=== PATIENT | male | born 1985 | race Caucasian/White ===

== ENCOUNTER 2016-09-12 16:44 | Inpatient (IN) | payer OTHER ==
[~2016-09-12] VITALS: Ht 177.8 cm; Wt 63.5 kg
[2016-09-12] MEDS ORDERED: ONDANSETRON 4 MG/2 ML VIAL IM PRN (18:00)
[2016-09-12] MEDS ORDERED: LORAZEPAM 1 MG TABLET PO PRN ×2 (18:00)
[2016-09-12] MEDS ORDERED: diphenhydrAMINE 50 MG CAPSULE PO PRN (18:00)
[2016-09-12] MEDS ORDERED: ACETAMINOPHEN 325 MG TABLET PO PRN (18:00)
[2016-09-12] MEDS ORDERED: MAG HYDROX/AL HYDROX/SIMETH 30 ML LIQUID UDC PO PRN (18:00)
[2016-09-12] MEDS ORDERED: LOPERAMIDE HCL 2 MG CAPSULE PO PRN ×2 (18:00)
[2016-09-12] MEDS ORDERED: MAGNESIUM HYDROXIDE 30 ML LIQUID UDC PO PRN (18:00)
[2016-09-12] MEDS ORDERED: CLONIDINE HCL 0.1 MG TABLET PO PRN (18:00)
[2016-09-12] MEDS ORDERED: MIRALAX 17 GM POWD.PACK PO PRN (18:00)
[2016-09-12] MEDS ORDERED: THIAMINE HCL 200 MG/2 ML VIAL IM ONE (18:00)
[2016-09-12] MEDS ORDERED: LORAZEPAM 2 MG/1 ML VIAL IM PRN (18:00)
[2016-09-12] MEDS ORDERED: DICYCLOMINE HCL 20 MG TABLET PO PRN (18:00)
[2016-09-12] MEDS ORDERED: IBUPROFEN 400 MG TABLET PO PRN (18:00)
[2016-09-12] MEDS ORDERED: ONDANSETRON ODT 4 MG TAB.RAPDIS SL PRN (18:00)
--- NOTE | 2016-09-12 18:00 | NUR ---
PRE-ASSESSMENT: Pre-Assessment done at intake office, client is A/O x4, he presents with flat affect, anxious mood. Dilated pupils noted. T 97, RR 20, BP 131/88, HR 143, spO2 @ 97% on RA, Pain 0/10. He is fully ambulatory. He denies any allergies; he denies any withdrawal-induced seizure. Medications taken at home Trazodone 150mg HS PO Wellbutrin 150mg daily PO Clonidine 0.1mg BID PO Substance history alcohol 10-11 club drinks or 375mL hard liquor for a month. Last drink @ 1530 He had a couple double shots, a screw sprinkling truck driver, and a malt liquor 16oz. Methamphetamine $40.00 a day PO, last used an unknown amount today at 1530. Marijuana smoked a bowl daily. Client notified of vital signs every 4 hrs, urine drug screen, home medication policy and blood lab work, he verbalized understanding. Vitals T 97, P 143, RR 20, BP 131/88, spO2 @ 97% on RA, pain 0/10 LBM 09/12/16 Client denies having a PCP.
--- NOTE | 2016-09-12 18:25 | NUR ---
Client is in the unit, he has not been able to provide urine for drug screen. Client is fully ambulatory. Client is oriented to unit, educated about protocols and how to work TV and call light in his room. Seizure precautions. Weight: 140 pounds. Height: 5'10" Reassess pulse is 127 Will endorse to incoming nurse
[2016-09-12] MEDS ORDERED: TRAZ-147 PO (18:38)
[2016-09-12] MEDS ORDERED: BUPR150T10 PO (18:38)
[2016-09-12] MEDS ORDERED: METH500T PO (18:39)
[2016-09-12] MEDS ORDERED: CLON0.1T PO (18:40)
[2016-09-12] MEDS ORDERED: NICO2GUM9 BC (19:30)
--- NOTE | 2016-09-12 19:30 | NUR ---
ADMISSION Patient is a 31-year old, male, admitted and escorted by [facility] at 1830 to unit. Patient verbalized that he is homeless for over a month. Skin check done, no open skin noted. Patient denies Suicidal Ideation nor Homicidal Ideation. No edema noted. Pt is ambulatory with steady gait. Pt stands 5'10" and weighs 140 pounds per standing scale. Vital signs are as follows: BP-124/81, T-98.2, P-118, RR-18 and SPO2 on RA=99%. Patient is AAOx4 and with no anxiety noted at this time. Lung sounds clear bilaterally upon auscultation. No cough noted and bowel sounds are present on all quadrants. PERRLA and pupils are 4 mm upon visual check. Pt reports No Known Allergies, on Regular Diet and is Full Code. Pt denies any history of seizures. Per pt, withdrawal symptoms are anxiety and mental cravings. Patient denies any other withdrawal symptoms. Pt reports using the following substances: 1) Alcohol-Hard Liquor-started at age 13 and became a daily drinker by age 15. Since then, patient reports consuming at least 10 mixed drinks daily. Last consumption was on day of admission, 09/12/2016 1700, and took 3 shots of Giovanny Griffin. 2) Methamphetamine-started at age 23, per pt, he uses 1-2x each month on average, and "about $40 each time". Pt verbalized that he eats the substance because "it is more effective for me if I eat it rather than shoot or smoke it." Last use was on 09/12/2016 1700, "$10 worth" used. 3) Cannabis-started at age 12, and uses 1/2 of a joint daily and has been at this rate for 10 years. Last use was on 09/12/2016 1700, 1/2 joint. Patient verbalized the he does not take other substances besides the one mentioned above. Patient informed PMHx of Anxiety, Depression, Hyperthyroidism, Right Humerus and Pelvic Fractures from accidents several years ago and sweet bites (22 years old). Home meds are reconciled. No PCP nor Psych MD as per patient. Patient reports smoking cigarettes, about 1 pack of Snyder reds, daily. Oriented patient to room and instructed with the use of the call light, placed within reach. Fall, universal, seizure and safety precautions implemented. No c/o significant pain at this time. All needs met. Information relayed to Dr. Machado. Patient refused PNA vaccine and Flu vaccine is out of season. CIWA=6. Will continue to monitor.
[2016-09-12 20:00] VITALS: BP 120/83
[2016-09-12] MEDS ORDERED: LORAZEPAM 1 MG TABLET PO ONE (22:00)
[2016-09-12 22:15] LABS: *AMPHETAMINE, URINE POSITIVE (NEGATIVE); *BARBITURATE, URINE NEGATIVE (NEGATIVE); *CANNABINOID, URINE POSITIVE (NEGATIVE); *COCCAINE, URINE NEGATIVE (NEGATIVE); *OPIATE, URINE NEGATIVE (NEGATIVE); *PHENCYCLIDINE SCREEN,URINE NEGATIVE (NEGATIVE)
[2016-09-12] MEDS ORDERED: THIAMINE HCL 200 MG/2 ML VIAL ONE (22:23)
[2016-09-12 23:10] LABS: BASOPHILS % (AUTO) 0.3 % (0.0-2.0); EOSINOPHILS # (AUTO) 0.1 K/uL (0.0-0.7); MONOCYTES # (AUTO) 1.1 K/UL (0.1-1.30); WHITE BLOOD COUNT (AUTO) 10.9 K/UL (4.0-11.2)
[2016-09-12 23:16] LABS: EOSINOPHILS % (AUTO) 0.7 % (0.0-7.0); HEMOGLOBIN 16.6 G/DL (14.0-18.0); LYMPHOCYTES % (AUTO) 28.1 % (20.5-51.5); MEAN CORPUSCULAR HEMOGLOBIN 30.8 UUG (27.0-31.0); MEAN CORPUSCULAR HGB CONC 34 g/dL (32.0-37.0); MEAN CORPUSCULAR VOLUME 90.9 FL (82.0-92.0); MONOCYTES % (AUTO) 9.9 % (0.0-11.0); NEUTROPHILS # (AUTO) 6.7 K/UL (1.8-8.9); PLATELET COUNT (AUTO) 185 K/UL (150-450); RED BLOOD CELL COUNT(AUTO) 5.39 MIL/UL (4.7-6.1)
[2016-09-12 23:21] LABS: ALANINE AMINOTRANSFERASE 21 U/L (16-63); ALKALINE PHOSPHATASE 73 U/L (50-136); AMYLASE 34 U/L (25-115); ASPARTATE AMINOTRANSFERASE 17 U/L (15-37); BILIRUBIN,TOTAL 1.4 mg/dL (0.2-1.0); CARBON DIOXIDE 28 mmol/L (21-32); CHLORIDE 100 mmol/L (98-107); CREATININE 1.1 mg/dL (0.6-1.3); GLUCOSE 120 mg/dL (74-106); MAGNESIUM 2.2 mg/dL (1.8-2.4); POTASSIUM 3.2 mmol/L (3.5-5.1); TOTAL PROTEIN, SERUM 8.5 g/dL (6.4-8.2); UREA NITROGEN, BLOOD 11 mg/dL (7-18)
[2016-09-12 23:30] LABS: THYROID STIMULATING HORMONE 4.359 mIU/mL (0.358-3.740)
[2016-09-13] VITALS: BP 138/87
[2016-09-13 00:16] LABS: ETHANOL < 3 MG/DL (0-0)
[2016-09-13] MEDS ORDERED: POTASSIUM CHLORIDE 20 MEQ TAB.PRT.SR PO ONE (00:45)
[2016-09-13 04:00] VITALS: BP 130/79
--- NOTE | 2016-09-13 07:07 | NUR ---
End of Shift Patient is a 31-year old, male, admitted for ETOH Dependence. Pt reports No Known Allergies, on Regular Diet and is Full Code. Pt denies any history of seizures. With reported history of Anxiety, Depression, Hyperthyroidism, Right Humerus and Pelvic Fractures from accidents several years ago and sweet bites (22 years old). Pt is AAOx4, no SOB noted and is ambulatory with steady gait. No skin issues. No anxiety noted. . Fall, universal, seizure and safety prec in place. Call light withiin reach. Latest CIWA=4 , slept for 4 hours . Endorsed to AM shift nurse for continuity of care.
--- NOTE | 2016-09-13 07:33 | NUR ---
START OF SHIFT Rcvd endorsement from ongoing nurse, client is a 31 y/o admitted for alcohol withdrawal.Client Client received a one time dose Ativan 2mg @ 2200, last CIWA 4 @ 0400. Client slept 4 hrs. Client is in bed, a/o x4. he presents with anxious mood, flat affect, he stated "I had a hard time sleeping last night, I was sweating, could not stop moving my feet." Enlarged pupil and fine tremors noted. Skin warm/moist to touch, abdomen soft, nontender, quadrant x 4 active. Encourage client to increase fluid intake to facilitate detox. Encourage client to attend group therapy for skills to maintain sobriety. Client denies any hx of withdrawal induced seizures. Client is on seizure precautions. NKA, full code, regular diet. Call light within reach. Side rails x 2 up/padded. Will continue to monitor.
[2016-09-13 08:10] VITALS: BP 126/88
[2016-09-13] MEDS: THIAMINE HCL 100 MG TABLET PO SCH (08:18)
[2016-09-13] MEDS: FOLIC ACID 1 MG TABLET PO SCH (08:18)
[2016-09-13] MEDS: MULTIVITAMINS,THERAPEUTIC TABLET PO SCH (08:18)
--- NOTE | 2016-09-13 08:18 | NUR ---
PRN Ativan 1mg Client with anxiety mb increase P 1047, sweat on face and arms, abdominal cramps, restless legs, CIWA 11. Call light within reach. Will continue to monitor. Addendum: 09/13/16 at 0933 by JAYSHREE DAO RN PRN Clonidine 0.1mg for cold, chills, anxiety. PRN Bentyl 20mg for abdominal spasms. Client's P 107
--- NOTE | 2016-09-13 08:19 | NUR ---
TB test administered to L F/A, client tolerated well.
[2016-09-13] MEDS ORDERED: TUBERCULIN,PURIF.PROT.DERIV. 5 TU/0.1 ML TEST ID ONE (09:00)
--- NOTE | 2016-09-13 09:18 | NUR ---
Reassessment PRN Ativan 1mg, Clonidine 0.1mg, Bentyl 20mg Client appears less anxious, skin moist, P 90, client reports some relief from abdominal spasms, CIWA 6 Call light within reach. Will continue to monitor.
[2016-09-13] MEDS ORDERED: NICOTINE POLACRILEX 4 MG GUM-PK OF TEN BC PRN (09:30)
--- NOTE | 2016-09-13 10:00 | NUR ---
MD Notification Dr. Machado made aware of client being tachycardic, client is asymptomatic.
--- NOTE | 2016-09-13 10:26 | NUR ---
Therapist prompted client about group times. Client reported he would attend all groups today.
[2016-09-13 12:00] VITALS: BP 129/90
[2016-09-13] MEDS: LORAZEPAM 1 MG TABLET PO SCH ×2 (15:06→20:51)
[2016-09-13] MEDS ORDERED: TRAZODONE 100 MG TABLET PO PRN (16:00)
--- NOTE | 2016-09-13 16:01 | NUR ---
MD Notification Dr. Machado notified ECG results for Tachy Evaluation Sinus rhythm with sinus arrhythmia with short NM Otherwise normal ECG. NNO at this time
[2016-09-13 16:55] VITALS: BP 130/83
--- NOTE | 2016-09-13 19:02 | NUR ---
END OF SHIFT Rcvd endorsement from ongoing nurse, client is a 31 y/o admitted for alcohol withdrawal. Client is on 4th day Ativan taper, started at 1500. Client received a PRN Ativan 1mg @ 0818 FOR ciwa 11, noted effective CIWA 6, last CIWA 8 @ 1600. Client is in bed, a/o x4. he presents with depressed mood, flat affect, noted enlarged pupil and fine tremors. Dr. Machado notified ECG results for Tachy Evaluation, Sinus rhythm with sinus arrhythmia with short IN. Call light within reach. Will continue to monitor. Client was not compliant with group therapy, but he was compliant with taper medication. Adequate intake 2000mL, void x 2, stool x 1. Client is fully ambulatory. Call light within reach. Seizure precautions, side rails x 2 up/padded. Safety measures rendered and all needs met.
[2016-09-13 20:00] VITALS: BP 132/84
--- NOTE | 2016-09-13 20:00 | NUR ---
Start of Shift Patient is a 31-year old, male, admitted for ETOH Dependence. Pt reports No Known Allergies, on Regular Diet and is Full Code. Pt denies any history of seizures. With reported history of Anxiety, Depression, Hyperthyroidism, Right Humerus and Pelvic Fractures from accidents several years ago and sweet bites (22 years old). Placed on a 4-day Ativan taper, started 09/13/2016. Pt is AAOx4, no SOB noted and is ambulatory with steady gait. No skin issues. No anxiety noted. . Fall, universal, seizure and safety prec in place. Call light withiin reach. Latest CIWA=5 . Will continue to monitor.
[2016-09-14] VITALS: BP 127/83
[2016-09-14 04:00] VITALS: BP 126/85
--- NOTE | 2016-09-14 07:05 | NUR ---
End of Shift Patient is a 31-year old, male, admitted for ETOH Dependence. Pt reports No Known Allergies, on Regular Diet and is Full Code. Pt denies any history of seizures. With reported history of Anxiety, Depression, Hyperthyroidism, Right Humerus and Pelvic Fractures from accidents several years ago and sweet bites (22 years old). Placed on a 4-day Ativan taper, started 09/13/2016. Pt is AAOx4, no SOB noted and is ambulatory with steady gait. No skin issues. No anxiety noted. . Fall, universal, seizure and safety prec in place. Call light withiin reach. Latest CIWA=3, slept for 8 hours . Endorsed to AM shift nurse for continuity of care.
--- NOTE | 2016-09-14 07:52 | NUR ---
START OF SHIFT NOTE Received report from night, 31 year old male admitted for ETOH dependence. Patient reported past medical history of Anxiety, Depression, Hyperthyroidism, Right Humerus and Pelvic Fractures from accidents several years ago and sweet bites (22 years old). Patient cont with 4-day Ativan taper and tolerating well. Pt did not receive any PRN per night nurse, Rosales TOLENTINO-3, slept for 8 hours. Upon assessment pt is alert awake oriented x4 in stable condition. Educated regarding plan of care for the day and medication regimen with good verbal understanding. Safety measures in place. Will cont to monitor.
[2016-09-14 08:00] VITALS: BP 135/87
[2016-09-14] MEDS: FOLIC ACID 1 MG TABLET PO SCH (08:16)
[2016-09-14 08:17] LABS: POTASSIUM 3.8 mmol/L (3.5-5.1)
[2016-09-14] MEDS: LORAZEPAM 1 MG TABLET PO SCH ×4 (08:17→20:21)
[2016-09-14] MEDS: MULTIVITAMINS,THERAPEUTIC TABLET PO SCH (08:17)
[2016-09-14] MEDS: THIAMINE HCL 100 MG TABLET PO SCH (08:17)
[2016-09-14 08:31] LABS: THYROID STIMULATING HORMONE 2.012 mIU/mL (0.358-3.740)
[2016-09-14 12:00] VITALS: BP 115/76
[2016-09-14 12:08] LABS: HEPATITIS B SURFACE AG Negative (Negative)
[2016-09-14 16:00] VITALS: BP 144/80
--- NOTE | 2016-09-14 18:50 | NUR ---
END OF SHIFT NOTE Endorsed pt to night nurse. Pt is alert awake oriented x4, 31 year old male admitted for ETOH dependence. Patient reported past medical history of Anxiety, Depression, Hyperthyroidism, Right Humerus and Pelvic Fractures from accidents several years ago and sweet bites (22 years old). Patient cont with 4-day Ativan taper and tolerating well. Pt remains compliant with the treatment plan. Patient encouraged adequate PO fluid intake as tolerated. During shift patient did receive any PRN. Last CIWA-5. Patient encouraged to attend group therapies/sessions to learn new coping skills to prevent relapse, patient denies SI/HI. Safety measures in place. Call light kept within reach.
--- NOTE | 2016-09-14 19:05 | NUR ---
Start of shift note Received report from day shift nurse. Pt is a 31 yo male, A+Ox4, presenting to [facility] for ETOH dependence. Pt has NKA, is on Full Code status, and on Regular diet. Pt is on Fall and Seizure precautions. Pt has HX of Hyperthyroidism, Anxiety, Depression, Pelvic and Right Humerus FX, and tachycardia. Pt is on 4 day Ativan taper, tolerated well. No s/s of distress noted at this time. Respirations even and unlabored. Will continue to monitor.
[2016-09-14 20:12] VITALS: BP 116/66
[2016-09-14] MEDS: GABAPENTIN 300 MG CAPSULE PO SCH (20:20)
[2016-09-15 00:47] VITALS: BP 105/61
[2016-09-15 04:19] VITALS: BP 110/64
--- NOTE | 2016-09-15 06:49 | NUR ---
End of shift note Pt is a 31 yo male, A+Ox4, presenting to [facility] for ETOH dependence. Pt has NKA, is on Full Code status, and on Regular diet. Pt is on Fall and Seizure precautions. Pt has HX of Hyperthyroidism, Anxiety, Depression, Pelvic and Right Humerus FX, and tachycardia. Pt is on 4 day Ativan taper, tolerated well. Pt slept for a total of 8 HRS. Last CIWA: 1 @0400. No s/s of distress noted at this time. Respirations even and unlabored. Will endorse to day shift nurse.
--- NOTE | 2016-09-15 07:45 | NUR ---
START OF SHIFT NOTE Received report from night, 31 year old male admitted for ETOH dependence. Patient reported past medical history of Anxiety, Depression, Hyperthyroidism, Right Humerus and Pelvic Fractures from accidents several years ago and sweet bites (22 years old). Patient cont with 4-day Ativan taper and tolerating well. Pt did not receive any PRN per night nurse, Rosales TOLENTINO-1, slept for 8 hours. Upon assessment pt is alert awake oriented x4 in stable condition. Educated regarding plan of care for the day and medication regimen with good verbal understanding. Safety measures in place. Will cont to monitor.
[2016-09-15 08:00] VITALS: BP 127/90
[2016-09-15] MEDS: FOLIC ACID 1 MG TABLET PO SCH (08:15)
[2016-09-15] MEDS: MULTIVITAMINS,THERAPEUTIC TABLET PO SCH (08:15)
[2016-09-15] MEDS: THIAMINE HCL 100 MG TABLET PO SCH (08:15)
[2016-09-15] MEDS: LORAZEPAM 1 MG TABLET PO SCH ×3 (08:15→20:42)
[2016-09-15] MEDS: GABAPENTIN 300 MG CAPSULE PO SCH ×3 (08:15→20:42)
[2016-09-15 12:00] VITALS: BP 115/79
[2016-09-15 16:00] VITALS: BP 122/77
--- NOTE | 2016-09-15 19:07 | NUR ---
END OF SHIFT NOTE Endorsed pt to night nurse. Pt is alert awake oriented x4, 31 year old male admitted for ETOH dependence. Patient reported past medical history of Anxiety, Depression, Hyperthyroidism, Right Humerus and Pelvic Fractures from accidents several years ago and sweet bites (22 years old). Patient cont with 4-day Ativan taper and tolerating well. Pt remains compliant with the treatment plan. Patient encouraged adequate PO fluid intake as tolerated. During shift patient did receive any PRN. Last CIWA-2. Patient encouraged to attend group therapies/sessions to learn new coping skills to prevent relapse, patient denies SI/HI. Safety measures in place. Call light kept within reach.
--- NOTE | 2016-09-15 19:08 | NUR ---
Start of shift note Received report from day shift nurse. Pt is a 31 yo male, A+Ox4, presenting to [facility] for ETOH dependence. Pt has NKA, is on Full Code status, and on Regular diet. Pt is on Fall and Seizure precautions. Pt has HX of Hyperthyroidism, Anxiety, Depression, Pelvic and Right Humerus FX, and tachycardia. Pt is on 4 day Ativan taper, tolerated well. No s/s of distress noted at this time. Respirations even and unlabored. Will continue to monitor.
[2016-09-15 20:11] VITALS: BP 112/80
[2016-09-16 00:12] VITALS: BP 120/79
[2016-09-16 04:11] VITALS: BP 125/84
--- NOTE | 2016-09-16 07:00 | NUR ---
End of shift note Pt is a 31 yo male, A+Ox4, presenting to [facility] for ETOH dependence. Pt has NKA, is on Full Code status, and on Regular diet. Pt is on Fall and Seizure precautions. Pt has HX of Hyperthyroidism, Anxiety, Depression, Pelvic and Right Humerus FX, and tachycardia. Pt is on 4 day Ativan taper, tolerated well. Pt slept for a total of 9 HRS. Last CIWA: 1 @0400. No s/s of distress noted at this time. Respirations even and unlabored. Will endorse to day shift nurse.
--- NOTE | 2016-09-16 07:01 | NUR ---
Start of Shift Notes: Received patient in his room. Alert and oriented x 4. Verbally responsive. Able to make needs known. Respirations even and unlabored. No SOB noted. Skin warm and dry to touch. Abdomen soft and non-distended with (+) BS in all 4 quadrants. no complains of N/V/D or constipation noted. Bladder non-distended. No complains of dysuria noted. Ambulatory ad nicolas with steady gait. Patient is a 31 year old male admitted for ETOH and methamphetamine dependence who was placed on a 4-day Ativan taper as ordered. Prior to admission, patient was using more than 10 mixed drinks x 15 years, $40 of methamphetamine intermittently x 7 years and 1/2 joint of Marijuana. Has past medical hx of hyperthyroidism, right humer, pelvic fracture, anxiety and depression. Educated patient on his current plan of care for the day and his medication regimen. Encouraged oral fluid intake and encouraged group participation to learn new skills to prevent relapse. NKA. FULL CODE. Regular diet. On fall and seizure precautions. Will continue to monitor.
[2016-09-16 08:00] VITALS: BP 123/79
[2016-09-16] MEDS: GABAPENTIN 300 MG CAPSULE PO SCH ×3 (08:40→20:03)
[2016-09-16] MEDS: THIAMINE HCL 100 MG TABLET PO SCH (08:40)
[2016-09-16] MEDS: MULTIVITAMINS,THERAPEUTIC TABLET PO SCH (08:40)
[2016-09-16] MEDS: FOLIC ACID 1 MG TABLET PO SCH (08:40)
[2016-09-16] MEDS ORDERED: LORAZEPAM 1 MG TABLET PO SCH ×2 (09:00)
[2016-09-16 12:00] VITALS: BP 124/77
[2016-09-16] MEDS ORDERED: CLON0.1T14 PO (13:41)
[2016-09-16] MEDS ORDERED: GABA-534 PO (13:41)
[2016-09-16] MEDS ORDERED: NICO4GUM38 BC (13:41)
[2016-09-16] MEDS ORDERED: IBUP-1953 PO (13:41)
[2016-09-16 15:29] LABS: *AMPHETAMINE, URINE NEGATIVE (NEGATIVE); *BARBITURATE, URINE NEGATIVE (NEGATIVE); *CANNABINOID, URINE POSITIVE (NEGATIVE); *COCCAINE, URINE NEGATIVE (NEGATIVE); *OPIATE, URINE NEGATIVE (NEGATIVE); *PHENCYCLIDINE SCREEN,URINE NEGATIVE (NEGATIVE)
[2016-09-16 16:00] VITALS: BP 115/81
--- NOTE | 2016-09-16 18:56 | NUR ---
End of Shift Notes: Patient completed Ativan taper. No adverse reactions noted. VS monitored closely q 4 hours. No significant abnormalities noted. Withdrawal symptoms were closely monitored. Initial CIWA 1. Patient presented with mild anxiety. Able to be redirected. Last CIWA 1. Per patient, Ativan has helped him with his withdrawal symptoms. Completed taper today and will be discharging tomorrow. UDS in and resulted. Patient participated in group and therapy sessions. Compliant with care and treatment. Call light kept in reach. Will continue to monitor.
--- NOTE | 2016-09-16 19:07 | NUR ---
Start of shift note Received report from day shift nurse. Pt is a 31 yo male, A+Ox4, presenting to [facility] [place] for ETOH dependence. Pt has NKA, is on Full Code status, and on Regular diet. Pt is on Fall and Seizure precautions. Pt has HX of Hyperthyroidism, Anxiety, Depression, Pelvic and Right Humerus FX, and tachycardia. Pt has completed 4 day Ativan taper, tolerated well, and is due for discharge tomorrow. No s/s of distress noted at this time. Respirations even and unlabored. Will continue to monitor.
[2016-09-16] MEDS ORDERED: HYDROXYZINE PAMOATE 25 MG CAPSULE PO ONE (19:30)
--- NOTE | 2016-09-16 20:03 | NUR ---
One Time Vistaril Pt c/o anxiety and requested for PRN Vistaril. New order provided by . Medication given and tolerated well. Will reassess within 1 HR. Will continue to monitor.
[2016-09-16 20:12] VITALS: BP 100/61
--- NOTE | 2016-09-16 21:03 | NUR ---
One Time Vistaril Reassessment Pt expresses reduction in anxiety. No s/s of ASE/distress noted at this time. Respirations even and unlabored. Will continue to monitor.
[2016-09-17 00:43] VITALS: BP 110/65
[2016-09-17 04:11] VITALS: BP 115/69
--- NOTE | 2016-09-17 07:01 | NUR ---
End of shift note Pt is a 31 yo male, A+Ox4, presenting to [facility] for ETOH dependence. Pt has NKA, is on Full Code status, and on Regular diet. Pt is on Fall and Seizure precautions. Pt has HX of Hyperthyroidism, Anxiety, Depression, Pelvic and Right Humerus FX, and tachycardia. Pt has completed 4 day Ativan taper, tolerated well, and is due for discharge today. Pt was given One time dose of Vistaril @2002. Pt slept for a total of 10 HRS. Last CIWA: 1 @0400. No s/s of distress noted at this time. Respirations even and unlabored. Will endorse to day shift nurse.
[2016-09-17 08:00] VITALS: BP 121/79
--- NOTE | 2016-09-17 08:00 | NUR ---
START OF SHIFT Pt 31 y/o male admitted for etoh dependence. Pt received in room on bed with eyes closed resting, but easily arousable to name. Pt alert and oriented to name, place, and time. Perrla. Skin warm and dry to touch. Respirations even and unlabored. It was reported that pt slept for 10 hours last night. Bed on lowest position with side rails x2 up for safety. Call light within reach. No distress noted at this time. Pt is scheduled to be discharged today.
[2016-09-17] MEDS: GABAPENTIN 300 MG CAPSULE PO SCH (08:07)
[2016-09-17] MEDS: FOLIC ACID 1 MG TABLET PO SCH (08:07)
[2016-09-17] MEDS: THIAMINE HCL 100 MG TABLET PO SCH (08:08)
[2016-09-17] MEDS: MULTIVITAMINS,THERAPEUTIC TABLET PO SCH (08:08)
--- NOTE | 2016-09-17 11:08 | NUR ---
DISCHARGE Pt 31 y/o male admitted for etoh dependence. Pt discharged to [facility] via private transport. Pt alert and oriented to name, place, and time. Perrla. Skin warm and dry to touch. Respirations even and unlabored. VS wnl. No belongings in cassette noted. Discharge papers, prescriptions, home medications, and belongings in cabinets were packed in pt bag. No distress noted.
== END 2016-09-17 11:08 | DRG 895 ==
LOC: SRC 17:31
PROVIDERS: ADMIT Internal Medicine; ATTEND Internal Medicine
DX: F10.230 Alcohol dependence with withdrawal, uncomplicated (principal); F15.20 Other stimulant dependence, uncomplicated; Y90.9 Presence of alcohol in blood, level not specified; Z59.0 Homelessness; K70.10 Alcoholic hepatitis without ascites; F41.9 Anxiety disorder, unspecified; F17.210 Nicotine dependence, cigarettes, uncomplicated; Z82.49 Family history of ischemic heart disease and other diseases of the circulatory system; Z82.3 Family history of stroke; Z81.1 Family history of alcohol abuse and dependence; F12.90 Cannabis use, unspecified, uncomplicated; E87.6 Hypokalemia; E07.81 Sick-euthyroid syndrome; F32.9 Major depressive disorder, single episode, unspecified; Z59.1 Inadequate housing; R73.9 Hyperglycemia, unspecified
CPT/HCPCS: 36415; 70030-TC; 80307; 80324; 80349; 83735; 84443; 85025; 86580; 86592; 86705; 86803; 87340; 87806; 93005; A4663; G0480; J3411